=== PATIENT | female | born 1985 | race Caucasian/White ===

== ENCOUNTER → 2018-02-10 | Outpatient (CLI) | payer BC ==
[~2018-02-10] MED LIST: CATHETER FLUSH 10 ML SYR IV PRN; FLC1T PO; FLX10C PO; HYDR1TAB75 PO; LAMO200T14 PO
--- NOTE | 2018-02-10 10:21 | Diagnostic Imaging Report ---
Clinical indication: Patient with nausea, bloating, and cramping with fatty foods. Comparison: None. Procedure: The patient was administered 5.15 millicuries of technetium 99m Choletec. After 60 minutes of the images, one can of Ensure was drink followed by another 60 minutes of imaging. A nuclear medicine hepatobiliary scan with ejection fraction was performed. Findings: There is prompt uptake and excretion of radiotracer by the liver. Activity is visible in the gallbladder by 20 minutes and the small bowel by 5 minutes post ensure. Ejection fraction of the gallbladder is calculated at 28% (normal > 33 %). The gallbladder visibly empties on the scans following the ingestion of Ensure. Impression: 1: Abnormal hepatobiliary scan with low gallbladder ejection fraction of 28%. Differential consideration includes chronic cholecystitis or gallbladder dysmotility. 2: There is no evidence of obstructive acute cholecystitis. Dictated by: Dictated on workstation # [id number]
== END ==
LOC: CARD 07:30
PROVIDERS: ATTEND Surgery
DX: R11.0 Nausea (principal); R14.0 Abdominal distension (gaseous); K82.8 Other specified diseases of gallbladder
CPT/HCPCS: 78227

== ENCOUNTER → 2018-09-23 | Outpatient (CLI) | payer BC ==
[~2018-09-23] MED LIST changes: -CATHETER FLUSH 10 ML SYR IV PRN; +GADOBUTROL 7.5 MMOL/7.5 ML (GADAVIST) VIAL IV ONE
--- NOTE | 2018-09-23 10:49 | Diagnostic Imaging Report ---
PROCEDURE: MRI pelvis with and without contrast. TECHNIQUE: Multiplanar, multisequence MRI of the pelvis was performed with and without contrast. INDICATION: Pelvic pain, endometriosis. COMPARISON: None available. FINDINGS: The uterus measures 8.1 x 4.8 x 5.6 cm. The endometrium has normal homogeneous T2 hyperintensity and is normal in thickness measuring up to 0.4 cm. The junctional zone has normal hypointensity and is also normal in thickness measuring less than 0.6 cm. Myometrium is normal in appearance without mass. There are no T1 hyperintense adnexal masses that would indicate endometriomas. By history, the patient's left ovary and fallopian tube are surgically resected. The right ovary measures 1.9 x 3.1 x 1.6 cm. No dilated tubular structures within the pelvis. No free pelvic fluid. No pathologic enhancement within the pelvis. Osseous structures are normal in appearance. The urinary bladder is normally filled without wall thickening to suggest an endometrial implant. No abnormal mass within the posterior compartment/pouch of Jose. IMPRESSION: 1. No MRI features of endometrial implants within the pelvis. Dictated by: Dictated on workstation # [id number]
== END ==
LOC: RAD 08:19
PROVIDERS: ATTEND Obstetrics & Gynecology
DX: N80.9 Endometriosis, unspecified (principal); Z90.721 Acquired absence of ovaries, unilateral; Z90.79 Acquired absence of other genital organ(s)
CPT/HCPCS: 72197